=== PATIENT | female | born 2000 | race Caucasian/White ===

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

== ENCOUNTER → 2021-07-04 | Outpatient (CLI) | payer MEDICAID ==
--- NOTE | 2021-07-04 14:40 | Diagnostic Imaging Report ---
INDICATION: POSITIVE QUANTIFERON TB COMPARISON: 12/17/2008 FINDINGS: Frontal and lateral views of the chest demonstrate normal heart size and pulmonary vascularity. The lungs are clear. There are no signs of infiltrate, pleural effusions or pneumothoraces. The visualized osseous structures show no acute abnormalities. Indwelling Kyle rods are noted. IMPRESSION: 1. No acute process. No signs of infiltrates, effusions or pneumothoraces. Report was faxed to [facility] by george at 2:40pm. Dictated by: Dictated on workstation # [id number]
== END ==
LOC: RAD 14:06
PROVIDERS: ATTEND Pediatrics
DX: A15.8 Other respiratory tuberculosis (principal)
CPT/HCPCS: 71046